=== PATIENT | female | born 1995 | race Two or more races ===

== ENCOUNTER 2018-03-22 22:44 | Emergency (ER) | payer MEDICAID ==
[~2018-03-22] VITALS: Ht 165.1 cm; Wt 54.4 kg
[2018-03-22 23:10] LABS: Basophils # (auto) 0 uL; Basophils % (auto) 0.2 % (0.0-2.0); Eosinophils # (auto) 0 uL; Hematocrit 41.7 % (36.0-46.0); Hemoglobin 14.3 g/dL (12.2-16.2); Lymphocytes % (auto) 9.4 % (10.0-50.0); Mean Corpuscular Hemoglobin 32.4 pg (28.0-32.0); Mean Corpuscular Hgb Conc. 34.2 g/dL (32.0-36.0); Mean Corpuscular Volume 94.6 fL (80.0-100.0); Monocytes # (auto) 0.5 uL; Monocytes % (auto) 4.7 % (0.0-12.0); Neutrophils # (auto) 9.3 uL; Neutrophils % (auto) 85.7 % (37.0-80.0); Platelet Count (auto) 320 10^3/uL (140-450); Red Cell Distribution Width 12.8 % (11.8-14.3); White Blood Cell 10.8 10^3/uL (4.4-10.8)
[2018-03-22] MEDS ORDERED: ONDANSETRON HCL 4 MG/2 ML VIAL ONE (23:12)
[2018-03-22 23:28] LABS: Albumin 4.3 g/dL (3.4-5.0); Calcium 8.8 mg/dL (8.5-10.1); Potassium 3.9 mmol/L (3.5-5.1)
[2018-03-22 23:30] LABS: BUN/Creatinine Ratio 25.4
[2018-03-22] MEDS ORDERED: SODIUM CHLORIDE 0.9% 1,000 ML IV ONE (23:30)
[2018-03-22] MEDS: ONDANSETRON HCL 4 MG/2 ML VIAL IV ONE (23:30)
[2018-03-22 23:33] LABS: Total Protein 8.4 g/dL (6.4-8.2)
[2018-03-23 01:42] LABS: Urine Bacteria FEW /hpf (None Seen); Urine Blood Negative /uL (Negative); Urine Mucus FEW (None Seen); Urine Specific Gravity 1.031 (1.001-1.035); Urine WBC 1 /hpf (0 - 5)
[2018-03-23 02:04] VITALS: BP 108/74
== END 2018-03-23 03:08 | disposition left against medical advice (07) ==
LOC: ER 22:51
DX: O21.0 Mild hyperemesis gravidarum (principal); O99.351 Diseases of the nervous system complicating pregnancy, first trimester; O99.311 Alcohol use complicating pregnancy, first trimester; F10.229 Alcohol dependence with intoxication, unspecified; G92 Toxic encephalopathy; Z3A.01 Less than 8 weeks gestation of pregnancy
CPT/HCPCS: 36415; 80053; 80320; 81001; 81025; 83690; 84702; 85025; 96361; 96374; 99283; J2405; J7030

== ENCOUNTER 2018-11-11 10:25 | Emergency (ER) | payer SELFPAY ==
[~2018-11-11] VITALS: Ht 162.6 cm; Wt 59.0 kg
[2018-11-11 11:02] VITALS: BP 103/71
[2018-11-11] MEDS ORDERED: HYDROcodone-ACET 10/325MG TAB PO ONE (11:15)
== END 2018-11-11 11:52 | disposition home or self-care (01) ==
LOC: ER 10:25
DX: S52.501A Unspecified fracture of the lower end of right radius, initial encounter for closed fracture (principal); F17.210 Nicotine dependence, cigarettes, uncomplicated; W19.XXXA Unspecified fall, initial encounter; Y93.89 Activity, other specified; Y92.89 Other specified places as the place of occurrence of the external cause; Y99.8 Other external cause status
CPT/HCPCS: 29125; 73110